=== PATIENT | male | born 1965 | race African-American/Black ===

== ENCOUNTER 2023-04-30 15:56 | Inpatient (IN) | payer OTHER ==
[~2023-04-30] VITALS: Ht 177.8 cm; Wt 138.3 kg
[2023-04-30] MEDS ORDERED: ALBUTEROL (0.083%) 2.5MG/3ML NEB HHN STA (16:35)
[2023-04-30 16:41] LABS: HEMATOCRIT. 43.6 % (42.0-52.0); HEMOGLOBIN. 14.4 g/dL (14.0-18.0); MEAN CORPUSCULAR HEMOGLOBIN 29.5 pg (28.0-32.0); MEAN CORPUSCULAR VOLUME 89.4 fL (80.0-94.0); MEAN PLATELET VOLUME 9.9 fl (7.4-10.4); PLATELET 154 x1000/uL (130-400); RED BLOOD CELL COUNT 4.88 mill/uL (4.7-6.1); RED CELL DISTRIBUTION WIDTH 13.5 % (11.6-14.6); WHITE BLOOD COUNT 4.3 x1000/uL (4.5-11.0)
[2023-04-30 16:51] LABS: DIFFERENTIAL COMMENT 1
[2023-04-30 16:55] LABS: PLATELET ESTIMATE NORMAL
[2023-04-30 17:01] LABS: ALANINE AMINOTRANSFERASE 47 IU/L (10-49); ALBUMIN 4.3 g/dL (3.2-4.8); ASPARTATE AMINOTRANSFERASE 61 IU/L (<34); BILIRUBIN TOTAL 1.4 mg/dL (0.1-1.0); CALCIUM 8.8 mg/dL (8.7-10.4); CARBON DIOXIDE 29 mEq/L (21-32); CHLORIDE 104 mEq/L (98-107); GLUCOSE 180 mg/dL (70-105); POTASSIUM 3.9 mEq/L (3.5-5.1); PROTEIN TOTAL 7.2 g/dL (6.0-8.3); SODIUM 139 mEq/L (136-145); TROPONIN I HIGH SENSITIVITY 30 ng/L (3.0-53); UREA NITROGEN BLOOD 11 mg/dL (9-23)
[2023-04-30 17:20] VITALS: PULSE 121; RESP 22; O2SAT 95
[2023-04-30 17:49] LABS: INR 1.1; PROTHROMBIN TIME 11.7 sec (9.6-11.0)
[2023-04-30 18:21] LABS: CLARITY URINE CLOUDY (CLEAR); COLOR URINE DARK YELLOW (YELLOW); GLUCOSE URINE NEGATIVE (NEGATIVE); KETONES URINE TRACE (NEGATIVE); LEUKOCYTE ESTERASE URINE NEGATIVE (NEGATIVE); NITRITE URINE NEGATIVE (NEGATIVE); OCCULT BLOOD URINE 3+ (NEGATIVE); PROTEIN URINE 2+ (NEGATIVE); SPECIFIC GRAVITY URINE 1.025 (1.005-1.030)
[2023-04-30] MEDS ORDERED: AZITHROMYCIN 500MG/250ML 250 ML IV ONE (18:45)
[2023-04-30] MEDS ORDERED: CEFTRIAXONE 1GM PREMIX 50 ML IV ONE (18:45)
[2023-04-30] MEDS ORDERED: SODIUM CHLORIDE 0.9% 1,000 ML IV ONE (18:45)
[2023-04-30 19:10] LABS: BACTERIA URINE NONE SEEN; RBC URINE 15-25 /hpf (0-2); SQUAMOUS EPITHELIAL CELL URINE 1+ /lpf (RARE/1+); WBC URINE 0-2 /hpf (0-2)
[2023-04-30 22:07] VITALS: BP 148/63; PULSE 89; RESP 19; TEMP 98.7
[2023-05-01] VITALS (7 sets, daily range): BP systolic 149–160; BP diastolic 82–94; PULSE 79–115; RESP 18–22; TEMP 97.7–98.6; O2SAT 93–96
[2023-05-01] MEDS ORDERED: HYDROCODONE/ACETAMINOPHEN 5/325MG TABLET PO PRN
[2023-05-01] MEDS ORDERED: ACETAMINOPHEN 325MG TABLET PO PRN
[2023-05-01] MEDS ORDERED: NALOXONE HCL 0.4MG/ML VIAL IV PRN (00:15)
[2023-05-01] MEDS: IPRATROPIUM/ALBUTEROL 0.5-3(2.5)MG/3ML NEB HHN PRN ×2 (01:50→14:30)
[2023-05-01] MEDS: ENOXAPARIN 40MG/0.4ML SYR SUBCUT SCH ×2 (10:20→21:40)
[2023-05-01] MEDS ORDERED: ONDANSETRON HCL 4MG/2ML INJ IV PRN (10:45)
[2023-05-01] MEDS ORDERED: CLONIDINE 0.1MG TABLET PO PRN (10:45)
[2023-05-01] MEDS ORDERED: DOCUSATE SODIUM 100MG CAPSULE PO PRN (10:45)
[2023-05-01] MEDS ORDERED: IPRATROPIUM/ALBUTEROL 0.5-3(2.5)MG/3ML NEB HHN PRN (10:45)
[2023-05-01] MEDS ORDERED: DEXTROSE 50% WATER 50ML SYRINGE IV PRN (10:45)
[2023-05-01] MEDS ORDERED: METHYLPREDNISOLONE SOD SUCC 40MG VIAL IV SCH (11:00)
[2023-05-01] MEDS ORDERED: AZITHROMYCIN 500 MG in DEXT 5% WATER 250 ML IV SCH (12:00)
[2023-05-01] MEDS: BLOOD SUGAR DIAGNOSTIC STRIP TEST SCH ×3 (12:10→21:01)
[2023-05-01] MEDS: INSULIN LISPRO 100 UNITS/ML SUBCUT SCH ×3 (13:57→21:45)
[2023-05-01] MEDS ORDERED: DILTIAZEM HCL 30MG TABLET PO SCH (14:00)
[2023-05-01 14:29] LABS: BG BASE EXCESS 1.4 mmol/L (-2.0-2.0); BG CARBOXYHEMOGLOBIN 1.1 % (0.5-1.5); BG FRACTION INSPIRED OXYGEN 21; BG HCO3 ACT 25.8 mmol/L (22.0-26.0); BG METHEMOGLOBIN 0.3 % (0.0-1.5); BG OXYGEN SATURATION 90.9 % (92.0-98.5); BG OXYHEMOGLOBIN 89.6 % (94.0-97.0); BG PCO2 40.3 mmHg (35.0-45.0); BG PH 7.425 (7.350-7.450); BG PO2 55.8 mmHg (75.0-100.0); BG SAMPLE SITE RIGHT RADIAL; BG TOTAL HEMOGLOBIN 14.6 g/dL (12.0-18.0); BG VENT MODE ROOM AIR
[2023-05-01] MEDS: FUROSEMIDE 40MG/4ML VIAL IVP SCH (17:19)
[2023-05-01 17:20] LABS: HEMATOCRIT. 42.4 % (42.0-52.0); HEMOGLOBIN. 14.1 g/dL (14.0-18.0); MEAN CORPUSCULAR HEMOGLOBIN 29.7 pg (28.0-32.0); MEAN CORPUSCULAR HGB CONC 33.2 g/dL (31.0-37.0); MEAN CORPUSCULAR VOLUME 89.6 fL (80.0-94.0); MEAN PLATELET VOLUME 10.2 fl (7.4-10.4); PLATELET 146 x1000/uL (130-400); RED BLOOD CELL COUNT 4.73 mill/uL (4.7-6.1); RED CELL DISTRIBUTION WIDTH 13.6 % (11.6-14.6); WHITE BLOOD COUNT 2.5 x1000/uL (4.5-11.0)
[2023-05-01] MEDS: AMLODIPINE 10MG TABLET PO SCH (17:20)
[2023-05-01] MEDS: LOSARTAN 25 MG TABLET PO SCH (17:21)
[2023-05-01] MEDS: AZITHROMYCIN 500 MG in DEXT 5% WATER 250 ML IV SCH (17:21)
[2023-05-01] MEDS: CEFTRIAXONE 1,000 MG in DEXTROSE 5% WATER 50 ML IV SCH (17:22)
[2023-05-01 17:23] LABS: DIFFERENTIAL COMMENT 1
[2023-05-01 17:46] LABS: ALANINE AMINOTRANSFERASE 54 IU/L (10-49); ASPARTATE AMINOTRANSFERASE 76 IU/L (<34); BILIRUBIN TOTAL 1.7 mg/dL (0.1-1.0); CALCIUM 8.6 mg/dL (8.7-10.4); CARBON DIOXIDE 27 mEq/L (21-32); CHLORIDE 106 mEq/L (98-107); CHOLESTEROL 152 mg/dL (<200); GLUCOSE 131 mg/dL (70-105); HDL CHOLESTEROL 47 mg/dL (>55); LDL CHOLESTEROL 98 mg/dL (5-100); POTASSIUM 3.8 mEq/L (3.5-5.1); PROTEIN TOTAL 7.1 g/dL (6.0-8.3); SODIUM 140 mEq/L (136-145); THYROID STIMULATING HORMONE 0.78 uIU/mL (0.55-4.78); TRIGLYCERIDE 71 mg/dL (0-150); UREA NITROGEN BLOOD 11 mg/dL (9-23)
[2023-05-01 17:59] LABS: PLATELET ESTIMATE NORMAL
[2023-05-01 19:21] LABS: CREATINE KINASE MB FRACTION 4.7 ng/mL (0.5-3.6)
[2023-05-01 23:37] LABS: *AMPHETAMINES SCREEN URINE NEGATIVE (NEGATIVE); *BARBITURATES SCREEN URINE NEGATIVE (NEGATIVE); *BENZODIAZEPINES SCREEN URINE NEGATIVE (NEGATIVE); *COCAINE SCREEN URINE NEGATIVE (NEGATIVE); CANNABINOID URINE SCREEN NEGATIVE (NEGATIVE); ECSTASY MDMA SCREEN URINE NEGATIVE (NEGATIVE); METHADONE URINE SCREEN Neg (NEGATIVE); OPIATES URINE SCREEN NEGATIVE (NEGATIVE); PHENCYCLIDINE URINE SCREEN NEGATIVE (NEGATIVE)
[2023-05-02] VITALS: BP 136/86; PULSE 107; RESP 18; TEMP 98.6
[2023-05-02 02:09] LABS: CREATINE KINASE MB FRACTION 4.1 ng/mL (0.5-3.6)
[2023-05-02 04:00] VITALS: BP 133/83; PULSE 110; RESP 20; TEMP 97.7
[2023-05-02] MEDS: BLOOD SUGAR DIAGNOSTIC STRIP TEST SCH ×4 (06:18→21:00)
[2023-05-02] MEDS: FUROSEMIDE 40MG/4ML VIAL IVP SCH ×2 (06:18→17:28)
[2023-05-02] MEDS: INSULIN LISPRO 100 UNITS/ML SUBCUT SCH ×4 (06:45→22:22)
[2023-05-02 07:37] LABS: HEMATOCRIT. 42.9 % (42.0-52.0); HEMOGLOBIN. 14.4 g/dL (14.0-18.0); MEAN CORPUSCULAR HEMOGLOBIN 30.3 pg (28.0-32.0); MEAN CORPUSCULAR HGB CONC 33.5 g/dL (31.0-37.0); MEAN CORPUSCULAR VOLUME 90.6 fL (80.0-94.0); MEAN PLATELET VOLUME 11.3 fl (7.4-10.4); PLATELET 157 x1000/uL (130-400); RED BLOOD CELL COUNT 4.74 mill/uL (4.7-6.1); RED CELL DISTRIBUTION WIDTH 13.4 % (11.6-14.6); WHITE BLOOD COUNT 2.6 x1000/uL (4.5-11.0)
[2023-05-02 07:40] LABS: DIFFERENTIAL COMMENT 1
[2023-05-02 07:42] VITALS: BP 130/80; PULSE 103; RESP 19; TEMP 98
[2023-05-02 08:27] LABS: CALCIUM 8.8 mg/dL (8.7-10.4); CARBON DIOXIDE 28 mEq/L (21-32); CHLORIDE 104 mEq/L (98-107); CHOLESTEROL 137 mg/dL (<200); CREATININE 0.9 mg/dL (0.6-1.3); GLUCOSE 166 mg/dL (70-105); HDL CHOLESTEROL 46 mg/dL (>55); LDL CHOLESTEROL 100 mg/dL (5-100); POTASSIUM 3.9 mEq/L (3.5-5.1); SODIUM 140 mEq/L (136-145); TRIGLYCERIDE 92 mg/dL (0-150); TROPONIN I HIGH SENSITIVITY 30 ng/L (3.0-53); UREA NITROGEN BLOOD 10 mg/dL (9-23)
[2023-05-02] MEDS: AMLODIPINE 10MG TABLET PO SCH (09:10)
[2023-05-02] MEDS: LOSARTAN 25 MG TABLET PO SCH (09:10)
[2023-05-02] MEDS: ENOXAPARIN 40MG/0.4ML SYR SUBCUT SCH ×2 (09:13→20:16)
[2023-05-02 12:00] VITALS: BP 146/74; PULSE 100; RESP 20; TEMP 98.4
[2023-05-02 13:26] LABS: ALANINE AMINOTRANSFERASE 57 IU/L (10-49); ASPARTATE AMINOTRANSFERASE 77 IU/L (<34); BILIRUBIN DIRECT 0.6 mg/dL (<=3.0); BILIRUBIN TOTAL 1.6 mg/dL (0.1-1.0); CREATINE KINASE 1926 IU/L (46-171); CREATINE KINASE MB FRACTION 1.8 ng/mL (0.5-3.6); PROTEIN TOTAL 6.8 g/dL (6.0-8.3)
[2023-05-02 16:00] VITALS: BP 140/72; PULSE 98; RESP 19; TEMP 98.6
[2023-05-02] MEDS: AZITHROMYCIN 500 MG in DEXT 5% WATER 250 ML IV SCH (17:29)
[2023-05-02] MEDS: CEFTRIAXONE 1,000 MG in DEXTROSE 5% WATER 50 ML IV SCH (18:43)
[2023-05-02 20:00] VITALS: BP 150/81; PULSE 102; RESP 20; TEMP 97.4
[2023-05-02 21:03] LABS: PLATELET ESTIMATE NORMAL
[2023-05-03] VITALS (7 sets, daily range): BP systolic 119–162; BP diastolic 65–123; PULSE 90–98; RESP 18–20; TEMP 96.6–97.7; O2SAT 99
[2023-05-03] MEDS: BLOOD SUGAR DIAGNOSTIC STRIP TEST SCH ×2 (08:02→12:45)
[2023-05-03] MEDS: FUROSEMIDE 40MG/4ML VIAL IVP SCH (08:03)
[2023-05-03] MEDS: ENOXAPARIN 40MG/0.4ML SYR SUBCUT SCH (08:27)
[2023-05-03] MEDS: LOSARTAN 25 MG TABLET PO SCH (08:28)
[2023-05-03] MEDS: INSULIN LISPRO 100 UNITS/ML SUBCUT SCH ×2 (08:32→12:40)
[2023-05-03] MEDS: AMLODIPINE 10MG TABLET PO SCH (08:33)
== END 2023-05-03 17:00 | disposition left against medical advice (07) | DRG 189 ==
LOC: ER 15:56 → 8WST 18:45 → EDBEDREQTM 18:49 → EDBEDREQ 18:49
PROVIDERS: ADMIT Internal Medicine; ATTEND Internal Medicine
DX: J96.00 Acute respiratory failure, unspecified whether with hypoxia or hypercapnia (principal); Z68.41 Body mass index [BMI] 40.0-44.9, adult; I16.0 Hypertensive urgency; D72.819 Decreased white blood cell count, unspecified; E66.9 Obesity, unspecified; E11.9 Type 2 diabetes mellitus without complications; Z20.822 Contact with and (suspected) exposure to COVID-19; F17.210 Nicotine dependence, cigarettes, uncomplicated; I10 Essential (primary) hypertension; R00.0 Tachycardia, unspecified; R60.0 Localized edema
CPT/HCPCS: 36415; 36600; 71045; 71250; 76604; 80048; 80053; 80061; 80076; 80305; 81003; 82375; 82550; 82553; 82805; 82962; 83036; 83605; 83735; 83880; 84145; 84443; 84484; 85025; 85379; 87426; 87804; 93005; 93306; 93880; 94640; 99285; C9803; J0456; J0696; J1650; J1815; J1940; J7030; J7060